=== PATIENT | female | born 1930 | race Caucasian/White ===

== ENCOUNTER 2016-11-09 16:10 | Emergency (ER) | payer BC, MEDICARE ==
[~2016-11-09] VITALS: Ht 170.2 cm; Wt 55.0 kg
[~2016-11-09 16:10] MED LIST: PROM6.257 PO; TELM40 PO; ZITH250T PO
[2016-11-09 16:18] VITALS: BP 178/88; PULSE 84; RESP 16; TEMP 98; O2SAT 97
[2016-11-09] MEDS ORDERED: GLAUCOMA DROPS EACH EYE (16:37)
[2016-11-09] MEDS ORDERED: LOSA25TA PO (16:37)
--- NOTE | 2016-11-09 17:22 | PD ---
HPI Chief Complaint: Fall Time Seen by Provider: 17:00 Travel History International Travel<30 days: No Contact w/Intl Traveler<30days: No Traveled to known affect area: No History of Present Illness HPI 86-year-old female presents to the emergency room for evaluation of a trip and fall that occurred about 6 hours prior to arrival. Patient states she was walking her dog and fell forward landing on her face, left elbow, and left knee. She denies syncopal episode or dizziness. States she does not know the exact mechanism of how she fell but denies headache, retrograde amnesia, nausea , vomiting, confusion, or changes in mental status. She is not on blood thinners. Patient has history of falls and uses a cane; she has walkers at home but she does not like to use. Patient reports minimal pain in the left knee and has been ambulatory since onset of symptoms. She denies any elbow, neck, back, or hip pain. Denies paresthesias. Last tetanus was 2 years ago. PFSH Past Medical History Hx Anticoagulant Therapy: No Diminished Hearing: No Glaucoma: Yes Hypertension: Yes Tetanus Vaccination: < 5 Years Influenza Vaccination: No Past Surgical History Surgical History: No Previous Surgery Social History Alcohol Use: Yes ( GLASS OF WINE-DAILY ) Tobacco Use: No Substance Use: No Allergies-Medications (Allergen,Severity, Reaction): Coded Allergies: No Known Allergies (Verified , 11/09/16) Reported Meds & Prescriptions Reported Meds & Active Scripts Active Reported [Glaucoma Drops] 1 Drop EACH EYE DAILY Losartan (Losartan Potassium) 25 Mg Tab 12.5 Mg PO DAILY Review of Systems Except as stated in HPI: all other systems reviewed are Neg Physical Exam Narrative GENERAL: Well-nourished, well-developed female in no acute distress. Afebrile. Ambulatory. SKIN: Warm and dry. Several superficial abrasions on the left hand, left elbow , and left knee. No skin tears or lacerations. There is a small hematoma of the left zygomatic arch and mild ecchymosis over the left maxillary region. HEAD: Atraumatic. Normocephalic. No gusman sign or raccoon eyes. EYES: PERRL, EOMI, no discharge or injection. No scleral icterus. ENT: Mucosa pink and moist. No erythema or exudates. No uvular edema. No uvular , palatal, or tonsillar deviation. Airway patent. EARS: Bilateral pinnae and external canals appear within normal limits. Bilateral tympanic membranes without erythema, dullness or perforation. No hemotympanum. NECK: Trachea midline. No JVD. No midline tenderness. Full range of motion. BACK: No CVA tenderness. No rash. No point tenderness on palpation of the spine. NEUROLOGICAL: Awake and alert. Cranial nerves 2 through 12 grossly intact. Motor grossly within normal limits. Normal speech. Strength 5/5 and equal in upper and lower extremities. 2+ patellar and Achilles reflexes and equal bilaterally. PSYCHIATRIC: Appropriate mood and affect; insight and judgment normal. Data Data Last Documented VS Vital Signs Date Time Temp Pulse Resp B/P Pulse Ox O2 Delivery O2 Flow Rate FiO2 11/09/16 16:38 16 97 Room Air 11/09/16 16:18 98.0 84 178/[address] Facial Bones W/O Iv Cont (11/09/16 ) Ct Brain W/O Iv Contrast(Rout) (11/09/16 ) MDM Medical Decision Making Medical Screen Exam Complete: Yes Emergency Medical Condition: Yes Medical Record Reviewed: Yes Differential Diagnosis Fall versus fracture versus abrasion versus contusion versus head injury Narrative Course 86-year-old female presents to the emergency room for evaluation of head injury after trip and fall prior to arrival. Patient fell forward while walking her dog and landed on her left knee, left elbow, and the left side of her face. Denies significant pain. There is ecchymosis and superficial abrasions to all of these locations. Tetanus is up-to-date. No significant bony tenderness to palpation anywhere. She denies loss of consciousness, dizziness, retrograde amnesia, nausea, vomiting, or confusion. She is not on blood thinners. No hemotympanum, gusman sign, or raccoon eyes. CT of head is negative. CT of the facial bones negative. Patient discharged with fall prevention instructions. Told to use walker instead of cane. Told to follow up with a primary care physician and return to the emergency room for worsening symptoms. She understands and agrees to plan. Diagnosis Primary Impression: Closed head injury Qualified Code: S09.90XA - Closed head injury, initial encounter Additional Impression: Facial contusion Qualified Code: S00.83XA - Facial contusion, initial encounter Referrals: Primary Care Physician Patient Instructions: Facial Contusion (ED), Fall Prevention for Older Adults ( ED), General Instructions, Head Injury (ED) Additional Instructions: Rest and drink plenty of fluids. Use walker instead of your cane as this will provide more stability. Take Tylenol as directed, as needed for pain. Follow-up with a primary care physician. Return to the emergency room for worsening symptoms. Disposition: 01 DISCHARGE HOME Condition: Stable Scarlet Burns Nov 09, 2016 17:22
--- NOTE | 2016-11-09 17:58 | RADHPO ---
EXAM DATE/TIME: 11/09/2016 17:42 [facility] COMPARISON: No previous studies available for comparison. INDICATIONS : Fall onto face today, trauma below left orbit. RADIATION DOSE: 57.85 CTDIvol (mGy) MEDICAL HISTORY : Hypertension. SURGICAL HISTORY : None. ENCOUNTER: Initial ACUITY: 1 day PAIN SCALE: 0/10 LOCATION: Bilateral head TECHNIQUE: Multiple contiguous axial images were obtained of the head. Using automated exposure control and adjustment of the mA and/or kV according to patient size, radiation dose was kept as low as reasonably achievable to obtain optimal diagnostic quality images. FINDINGS: CEREBRUM: The ventricles are normal for age. No evidence of midline shift, mass lesion, hemorrha ge or acute infarction. No extra-axial fluid collections are seen. POSTERIOR FOSSA: The cerebellum and brainstem are intact. The 4th ventricle is midline. The cer ebellopontine angle is unremarkable. EXTRACRANIAL: The visualized portion of the orbits is intact. SKULL: The calvaria is intact. No evidence of skull fracture. CONCLUSION: Negative for acute process. Moderate atherosclerotic calcific vascular disease. Foster Lazar MD FACR on November 09, 2016 at 17:56 Board Certified Radiologist. This report was verified electronically.
--- NOTE | 2016-11-09 18:08 | RADHPO ---
EXAM DATE/TIME: 11/09/2016 17:42 [facility] COMPARISON: No previous studies available for comparison. INDICATIONS : Fall onto face today, trauma below left orbit. RADIATION DOSE: 34.86 CTDIvol (mGy) MEDICAL HISTORY : Hypertension. SURGICAL HISTORY : None. ENCOUNTER: Initial ACUITY: 1 day PAIN SCORE: 2/10 LOCATION: Left eye TECHNIQUE: Volumetric scanning of the facial bones was performed. Using automated exposure contr ol and adjustment of the mA and/or kV according to patient size, radiation dose was kept as low as re asonably achievable to obtain optimal diagnostic quality images. FINDINGS: ORBITS: The orbital and infraorbital osseous structures are intact. The retroconal structures hoyt ve a normal configuration. No radiopaque foreign bodies are seen. NASAL BONE: The nasal bone and maxillary spine are intact ZYGOMATIC ARCHES: Symmetric without evidence of fracture. SINUSES: The maxillary, ethmoid and frontal sinuses are intact. No air-fluid levels seen. NASAL CAVITY: The nasal septum is intact and midline. The lacrimal ducts are intact. SOFT TISSUES: No radiopaque foreign bodies seen. No soft-tissue swelling is seen. INTRACRANIAL: No intracranial air seen. CRIBIFORM PLATE: Grossly intact. CONCLUSION: Negative for fracture. Foster Lazar MD FACR on November 09, 2016 at 18:06 Board Certified Radiologist. This report was verified electronically.
== END 2016-11-09 18:31 | disposition home or self-care (01) ==
LOC: PHEFT 16:10
DX: S09.90XA Unspecified injury of head, initial encounter (principal); S00.83XA Contusion of other part of head, initial encounter; S80.212A Abrasion, left knee, initial encounter; S50.312A Abrasion of left elbow, initial encounter; I10 Essential (primary) hypertension; W18.30XA Fall on same level, unspecified, initial encounter; Y93.K1 Activity, walking an animal; Y99.8 Other external cause status
CPT/HCPCS: 70450; 70486